=== PATIENT | male | born 1965 | race Hispanic/Latino ===

== ENCOUNTER 2025-04-19 10:27 | Outpatient (CLI) | payer OTHER ==
[2025-04-19 11:16] LABS: #Basophils 0.08 10x3/uL (0.0-0.2); #Eosinophils 0.27 10x3/uL (0.0-0.5); #Monocytes 0.70 10x3/uL (0.0-1.1); #Neutrophils 3.17 10x3/uL (1.5-8.4); %Basophils 1.1 % (0.0-2.0); %Eosinophils 3.8 % (0.0-6.0); %Lymphocytes 39.9 % (18.0-47.0); %Monocytes 9.9 % (0.0-10.0); %Neutrophils 44.6 % (40.0-75.0); Hematocrit 44.3 % (38.8-50.0); Hemoglobin 14.3 g/dL (13.5-17.5); Mean Corpuscular Hemoglobin 32.4 pg (27.0-33.0); Mean Corpuscular Volume 100.2 fL (81.2-95.1); Platelet Count 281 10x3/uL (150-450); Red Blood Cell (RBC) Count 4.42 10x6/uL (4.32-5.72); White Blood Cell (WBC) Count 7.10 10x3/uL (3.5-10.5)
[2025-04-19 11:37] LABS: Anion Gap 11 mmol/L (10-20); BUN (Urea Nitrogen) 25 mg/dL (8.4-25.7); Calc. Creatinine Clearance 0 mL/min (70-130); Calcium 9.2 mg/dL (7.8-10.44); Carbon Dioxide 27 mmol/L (22-29); Chloride 108 mmol/L (98-107); Glucose 76 mg/dL (70-105); Potassium 4.9 mmol/L (3.5-5.1); Sodium 141 mmol/L (136-145)
== END 2025-04-19 10:28 | disposition home or self-care (01) ==
LOC: CSHLAB 10:27
PROVIDERS: ATTEND Surgery
DX: Z01.818 Encounter for other preprocedural examination (principal); K40.20 Bilateral inguinal hernia, without obstruction or gangrene, not specified as recurrent
CPT/HCPCS: 80048; 85025; 93005; 93010

== ENCOUNTER 2025-04-21 06:45 | Day surgery (SDC) | payer OTHER ==
[2025-04-19 10:53] VITALS: BMI 25.8
[2025-04-21] MEDS ORDERED: CEFAZOLIN 2 GM VIAL ONE (08:25)
[2025-04-21] MEDS ORDERED: Bupivacaine/Epinephrine 0.25% 30 ML VIAL ONE (08:25)
[2025-04-21] MEDS ORDERED: PROPOFOL 20 ML ONE (08:43)
[2025-04-21] MEDS ORDERED: Rocuronium Bromide 10 MG/ML (10ML VIAL) ONE (08:44)
[2025-04-21] MEDS ORDERED: Lidocaine 1% PF 5 ML VIAL ONE (08:44)
[2025-04-21] MEDS ORDERED: SUGAMMADEX SODIUM 200 MG/2 ML VIAL ONE (10:55)
[2025-04-21] MEDS ORDERED: Ondansetron PF 4 MG/2 ML Vial ONE (10:55)
[2025-04-21] MEDS ORDERED: HYDROcodone/Acetaminophen 5/325 mg Tablet ONE (12:01)
== END 2025-04-21 12:45 | disposition home or self-care (01) ==
LOC: CSHSDC 06:45
PROVIDERS: ATTEND Surgery
PROC: 0YUA4JZ Supplement Bilateral Inguinal Region with Synthetic Substitute, Percutaneous Endoscopic Approach (ICD-10-PCS; principal; 2025-04-21)
DX: K40.91 Unilateral inguinal hernia, without obstruction or gangrene, recurrent (principal); K40.90 Unilateral inguinal hernia, without obstruction or gangrene, not specified as recurrent; F17.290 Nicotine dependence, other tobacco product, uncomplicated; Z96.641 Presence of right artificial hip joint
CPT/HCPCS: C1781; J2405; J2704; J3010; S2900

== ENCOUNTER 2025-05-06 12:23 | Emergency (ER) | payer OTHER ==
[2025-05-06 14:13] LABS: #Basophils 0.10 10x3/uL (0.0-0.2); #Eosinophils 0.39 10x3/uL (0.0-0.5); #Monocytes 0.64 10x3/uL (0.0-1.1); #Neutrophils 4.47 10x3/uL (1.5-8.4); %Basophils 1.2 % (0.0-2.0); %Eosinophils 4.9 % (0.0-6.0); %Lymphocytes 29.2 % (18.0-47.0); %Monocytes 8.0 % (0.0-10.0); %Neutrophils 55.7 % (40.0-75.0); Hematocrit 42.8 % (38.8-50.0); Hemoglobin 14.3 g/dL (13.5-17.5); Mean Corpuscular Hemoglobin 32.7 pg (27.0-33.0); Mean Corpuscular Volume 97.9 fL (81.2-95.1); Platelet Count 380 10x3/uL (150-450); Red Blood Cell (RBC) Count 4.37 10x6/uL (4.32-5.72); White Blood Cell (WBC) Count 8.02 10x3/uL (3.5-10.5)
[2025-05-06 14:59] LABS: ALT (SGPT) 161 U/L (Less than 45); AST (SGOT) 165 U/L (11-34); Albumin 3.7 g/dL (3.1-4.5); Alkaline Phosphatase 110 U/L (40-110); Anion Gap 12 mmol/L (10-20); BUN (Urea Nitrogen) 18 mg/dL (8.4-25.7); Bilirubin, Total 0.4 mg/dL (0.3-1.2); Calc. Creatinine Clearance 0 mL/min (70-130); Calcium 8.7 mg/dL (7.8-10.44); Carbon Dioxide 23 mmol/L (22-29); Chloride 107 mmol/L (98-107); Globulin 3.7 g/dL (2.4-3.5); Glucose 94 mg/dL (70-105); Lipase 31 U/L (8-78); Potassium 4.3 mmol/L (3.5-5.1); Sodium 138 mmol/L (136-145)
== END 2025-05-06 16:04 | disposition home or self-care (01) ==
LOC: CSHERS 12:23
DX: K40.91 Unilateral inguinal hernia, without obstruction or gangrene, recurrent (principal); R94.5 Abnormal results of liver function studies; N43.3 Hydrocele, unspecified; Z55.6 Problems related to health literacy
CPT/HCPCS: 74177; 80053; 83605; 83690; 85025

== ENCOUNTER 2025-05-17 09:47 | Emergency (ER) | payer OTHER | END 2025-05-17 12:09 | disposition home or self-care (01) | LOC: CSHERS 09:47 | DX: K91.872 Postprocedural seroma of a digestive system organ or structure following a digestive system procedure (principal); F17.290 Nicotine dependence, other tobacco product, uncomplicated | CPT/HCPCS: 99283 ==

== ENCOUNTER 2025-05-26 12:15 | Emergency (ER) | payer OTHER | END 2025-05-26 13:41 | disposition home or self-care (01) | LOC: CSHERS 12:15 | DX: L76.34 Postprocedural seroma of skin and subcutaneous tissue following other procedure (principal); F17.290 Nicotine dependence, other tobacco product, uncomplicated | CPT/HCPCS: 99283 ==

== ENCOUNTER 2025-06-29 12:35 | Emergency (ER) | payer OTHER ==
[2025-06-29] MEDS ORDERED: Ketorolac Tromethamine 30 MG (1 mL) VIAL ONE (13:14)
[2025-06-29 13:27] LABS: #Basophils 0.04 10x3/uL (0.0-0.2); #Eosinophils 0.21 10x3/uL (0.0-0.5); #Monocytes 0.60 10x3/uL (0.0-1.1); #Neutrophils 4.24 10x3/uL (1.5-8.4); %Basophils 0.5 % (0.0-2.0); %Eosinophils 2.8 % (0.0-6.0); %Lymphocytes 31.2 % (18.0-47.0); %Monocytes 8.1 % (0.0-10.0); %Neutrophils 57.1 % (40.0-75.0); Hematocrit 44.3 % (38.8-50.0); Hemoglobin 14.9 g/dL (13.5-17.5); Mean Corpuscular Hemoglobin 32.0 pg (27.0-33.0); Mean Corpuscular Volume 95.1 fL (81.2-95.1); Platelet Count 364 10x3/uL (150-450); Red Blood Cell (RBC) Count 4.66 10x6/uL (4.32-5.72); White Blood Cell (WBC) Count 7.43 10x3/uL (3.5-10.5)
[2025-06-29 13:41] LABS: ALT (SGPT) 246 U/L (Less than 45); AST (SGOT) 283 U/L (11-34); Albumin 3.9 g/dL (3.1-4.5); Alkaline Phosphatase 118 U/L (40-110); Anion Gap 13 mmol/L (10-20); BUN (Urea Nitrogen) 21 mg/dL (8.4-25.7); Bilirubin, Total 0.6 mg/dL (0.3-1.2); Calc. Creatinine Clearance 0 mL/min (70-130); Calcium 9.0 mg/dL (7.8-10.44); Carbon Dioxide 24 mmol/L (22-29); Chloride 105 mmol/L (98-107); Globulin 4.0 g/dL (2.4-3.5); Glucose 95 mg/dL (70-105); Potassium 3.9 mmol/L (3.5-5.1); Sodium 138 mmol/L (136-145)
[2025-06-29 16:35] LABS: Glucose, Urine (Dipstick) Normal (Negative); Leukocyte Negative (Negative); Protein, Urine (Dipstick) 30 mg/dl (Neg-Trace); Specific Gravity, Urine 1.030 (1.005-1.030)
[2025-06-29 16:52] LABS: Bacteria/HPF 2+ HPF (None Seen); CAUTI Indications for Culture Dysuria,urgency,freq; Mucous/LPF 4+ LPF (<2+); RBC/HPF 0-3 HPF (0-3); WBC/HPF 0-3 HPF (0-3)
[2025-06-29 16:55] LABS: Urine Culture Reflex No No
== END 2025-06-29 17:34 | disposition home or self-care (01) ==
LOC: CSHERS 12:35
DX: N43.3 Hydrocele, unspecified (principal); F17.290 Nicotine dependence, other tobacco product, uncomplicated
CPT/HCPCS: 76870; 80053; 81001; 85025; 93976; 96374; J1885